=== PATIENT | male | born 1940 | race Two or more races ===

== ENCOUNTER → 2016-08-03 | Outpatient (CLI) | payer MEDICARE, OTHER ==
[~2016-08-03] MED LIST: ALLERGY10 M1 PO; ASPIRIN LO-DOSE81 MG PO; CORDARONE,PACE200 MG PO; FLOMAX0.4 MG PO; LEVOTHROID(SYN75 MCG PO; PEPCID20 MG PO; PROBIOTIC1 EAC2 PO; ZOCOR10 MG PO
== END | disposition disaster alternative care site (69) ==
LOC: GPOC 07-27 10:00 → GRAD 10:00
PROC: 0G9H3ZX Drainage of Right Thyroid Gland Lobe, Percutaneous Approach, Diagnostic (ICD-10-PCS; principal; 2016-08-03)
DX: E04.1 Nontoxic single thyroid nodule (principal)